=== PATIENT | male | born 1975 | race Caucasian/White ===

== ENCOUNTER → 2021-03-29 | Outpatient (CLI) | payer OTHER | LOC: KOH-I 12:36 | DX: R05 Cough (principal) | CPT/HCPCS: 71046 ==

== ENCOUNTER 2022-02-27 20:09 | Emergency (ER) | payer OTHER ==
[2022-02-28] MEDS ORDERED: ERYTHROMYCIN OP1 GM OP (00:47)
== END 2022-02-28 01:05 | disposition home or self-care (01) ==
LOC: ER1 20:09
DX: H10.13 Acute atopic conjunctivitis, bilateral (principal); F17.210 Nicotine dependence, cigarettes, uncomplicated
CPT/HCPCS: 99283